=== PATIENT | female | born 1975 | race Caucasian/White ===

== ENCOUNTER 2016-08-25 20:18 | Emergency (ER) | payer OTHER | END 2016-08-25 22:42 | disposition home or self-care (01) | LOC: ER1 20:18 | DX: J06.9 Acute upper respiratory infection, unspecified (principal) | CPT/HCPCS: 87081; 87880; 99283 ==

== ENCOUNTER 2020-08-12 23:09 | Emergency (ER) | payer OTHER ==
[~2020-08-12 23:09] MED LIST: IBUPROFEN600 MG PO; NORFLEX 100 MG100 MG PO; OMNICEF 300 MG300 MG PO; TORADOL 10 MG T10 MG PO; ZITHROMAX250 MG PO; ZOFRAN4 MG PO
[2020-08-12 23:59] LABS: HEMOGLOBIN 11.5 gm/dl (12.3-15.3); RED BLOOD COUNT 4.11 M/UL (4.00-5.10); WHITE BLOOD COUNT 13.1 K/UL (4.5-11.0)
[2020-08-13 00:20] LABS: BUN/CREATININE RATIO 21 (0-10)
[2020-08-13] MEDS ORDERED: ZOFRAN4 MG PO (00:29)
[2020-08-13] MEDS ORDERED: OMNICEF 300 MG300 MG PO (00:29)
== END 2020-08-13 01:36 | disposition home or self-care (01) ==
LOC: ER1 23:09
PROVIDERS: Physician Assistant
DX: N12 Tubulo-interstitial nephritis, not specified as acute or chronic (principal); N39.0 Urinary tract infection, site not specified; Z90.49 Acquired absence of other specified parts of digestive tract; Z90.710 Acquired absence of both cervix and uterus; Z79.899 Other long term (current) drug therapy
CPT/HCPCS: 36415; 80053; 81001; 83605; 85025; 87077; 87086; 87186; 96365; 96375; 99284; J0696; J2270; J2405